=== PATIENT | female | born 1995 | race Caucasian/White ===

== ENCOUNTER 2016-11-05 21:17 | Emergency (ER) | payer SELFPAY ==
[2016-11-05] MEDS ORDERED: Sodium Chloride 0.9% 1000 ML 1,000 ML IV STA (22:03)
[2016-11-05] MEDS ORDERED: Zofran 4 MG/2 ML VIAL IV ONE (22:03)
--- NOTE | 2016-11-05 22:14 | ERPHSYRPT ---
- History of Present Illness Time Seen by Provider: 11/05/16 21:51 Historian: patient, family (mother) Patient Subjective Stated Complaint: STATES THAT SINCE THIS AFTERNOON, SHE HAS HAD TROUBLE WITH MID ABDOMINAL PAIN AND NAUSEA - STATES THAT SHE FEELS LIKE THERE IS A BAND WRAPPED AROUND HER STOMACH - STATES SHE FEELS LIKE SOMETHING HAS BURST INSIDE OF HER - ALSO REPORTS SOME BLOOD IN A LOOSE STOOL TONIGHT Triage Nursing Assessment: AMBULATORY TO TREATMENT AREA - STEADY GAIT - MOVES ALL EXTREMITIES WITH EQUAL STRENGTH. ALERT/ORIENTED - PLEASANT AFFECT. SKIN PWD - NO RASH/INJURY. RESPS SPONTANEOUS - EASY - NON-LABORED Physician History: CC: abd pain Hx: 21 y/o healthy patient had some lower abd discomfort, nausea, 2 loose stools today. She then had some blood in stool that was bright red. Came to ER due to blood. No hx of this in the past. The pain is now mostly gone. Dry heaves without vomiting. She reports long hx of some abdominal discomfort and bowel issues. She has some seasonal allergies. Never considered for gluten of GI allergies. Timing/Duration: today Allergies/Adverse Reactions: sulfamethoxazole [From Bactrim] Adverse Reaction (Severe, Verified 11/05/16 21: 30) Diarrhea trimethoprim [From Bactrim] Adverse Reaction (Severe, Verified 11/05/16 21:30) Diarrhea Hx Tetanus, Diphtheria Vaccination/Date Given: Yes Hx Influenza Vaccination/Date Given: Yes Hx Pneumococcal Vaccination/Date Given: No Immunizations Up to Date: Yes - Review of Systems Constitutional: Malaise, No Fever, No Chills Eyes: No Symptoms Ears, Nose, & Throat: No Symptoms Respiratory: No Cough Cardiac: No Chest Pain Abdominal/Gastrointestinal: Abdominal Pain, Nausea, Diarrhea, No Vomiting Genitourinary Symptoms: No Dysuria Skin: No Rash Neurological: No Focal Weakness, No Headache, No Parasthesia All Other Systems: Reviewed and Negative - Past Medical History Pertinent Past Medical History: Yes Respiratory History: Asthma - Past Surgical History Past Surgical History: Yes - Social History Smoking Status: Never smoker Exposure to second hand smoke: No Drug Use: none Patient Lives Alone: No - Female History Hx Last Menstrual Period: 10/20/2016 - Nursing Vital Signs Nursing Vital Signs: Initial Vital Signs Temperature 98.2 F Temperature Source Oral Pulse Rate 82 Respiratory Rate 16 Blood Pressure 127/65 Pain Intensity 0 - Physical Exam General Appearance: alert Eye Exam: PERRL/EOMI Ears, Nose, Throat Exam: normal ENT inspection, moist mucous membranes Neck Exam: normal inspection, non-tender, supple Respiratory Exam: normal breath sounds, lungs clear Cardiovascular Exam: regular rate/rhythm, No murmur Gastrointestinal/Abdomen Exam: soft, No tenderness, No distention, No mass, No guarding Back Exam: normal range of motion Extremity Exam: No pedal edema Neurologic Exam: alert, oriented x 3, cooperative, sensation nml, No motor deficits Skin Exam: warm, dry, No rash SpO2 Interpretation: normal SpO2: 100 Oxygen Delivery: Room Air - Course Nursing assessment & vital signs reviewed: Yes - Radiology Exams AAS X-ray Interpretation: Reviewed by me, Negative Ordered Tests: Active Orders 24 hr Category Date Time Status Clean Catch Urine Specimen STAT Care 11/05/16 22:03 Active IV Insertion STAT Care 11/05/16 22:03 Active OBSTR/ACUTE ABDOMEN SERIES Stat Exams 11/05/16 22:03 Taken CBC W DIFF Stat Lab 11/05/16 22:20 Completed CMP Stat Lab 11/05/16 22:20 Completed HCG QUALITATIVE,SERUM Stat Lab 11/05/16 22:20 Completed Occult Blood,Stool Other Stat Lab 11/05/16 22:25 Completed UA Stat Lab 11/05/16 22:15 Completed Medication Summary Discontinued Medications Generic Name Dose Route Start Last Admin Trade Name Freq PRN Reason Stop Dose Admin Sodium Chloride 1,000 mls @ 999 mls/hr 11/05/16 22:03 11/05/16 22:22 Sodium Chloride 0.9% 1000 Ml IV 11/05/16 23:03 999 mls/hr .Q1H1M STA Administration Sodium Chloride Confirm 11/05/16 22:20 Sodium Chloride 0.9% 1000 Ml Administered 11/05/16 22:21 Dose 1,000 mls @ ud .ROUTE .STK-MED ONE Ondansetron HCl 4 mg 11/05/16 22:03 11/05/16 22:22 Zofran 4 Mg/2 Ml Vial IV 11/05/16 22:04 4 mg STAT ONE Administration Ondansetron HCl Confirm 11/05/16 22:20 Zofran 4 Mg/2 Ml Vial Administered 11/05/16 22:21 Dose 4 mg .ROUTE .STK-MED ONE Lab/Rad Data: Laboratory Result Diagrams 11/05/16 22:20 11/05/16 22:20 Laboratory Results 11/05/16 11/05/16 11/05/16 Range/Units 22:25 22:20 22:20 WBC (4.0-10.5) K/mm3 RBC (4.1-5.4) M/mm3 Hgb (12.0-16.0) gm/dl Hct (35-47) % MCV (78-100) fl MCH (26-32) pg MCHC (32-36) g/dl RDW (11.5-14.0) % Plt Count (150-450) K/mm3 MPV (6-9.5) fl Gran % (36.0-66.0) % Lymphocytes % (24.0-44.0) % Monocytes % (0.0-12.0) % Eosinophils % (0.00-5.0) % Basophils % (0.0-0.4) % Basophils # (0-0.4) Sodium 140 (136-145) mEq/L Potassium 3.6 (3.5-5.1) mEq/L Chloride 104 (98-107) mEq/L Carbon Dioxide 28.1 (21-32) mEq/L Anion Gap 11.9 (5-15) MEQ/L BUN 7 L (9-20) mg/dL Creatinine 0.72 (0.55-1.30) mg/dl Estimated GFR > 60 ML/MIN Glucose 93 (70-110) MG/DL Calcium 8.8 (8.5-10.1) mg/dL Total Bilirubin 0.2 (0.2-1.0) mg/dL AST 12 L (15-37) U/L ALT 18 (12-78) U/L Alkaline Phosphatase 86 (46-116) U/L Serum Total Protein 8.0 (6.4-8.2) gm/dL Albumin 3.9 (3.4-5.0) g/dL Serum , Qual NEGATIVE (Negative) Ur Collection Type Urine Color (YELLOW) Urine Appearance (CLEAR) Urine pH (5-6) Ur Specific Maple (1.005-1.025) Urine Protein (Negative) Urine Glucose (UA) (NEGATIVE) mg/dL Urine Ketones (NEGATIVE) Urine Nitrite (NEGATIVE) Urine Bilirubin (NEGATIVE) Urine Urobilinogen (0-1) mg/dL Urine WBC (Auto) (NEGATIVE) Urine RBC (Auto) (0-5) Dmitriy/ul Stool Occult Blood NEGATIVE (Negative) Specimen Received 11/05/16 11/05/16 Range/Units 22:20 22:15 WBC 9.5 (4.0-10.5) K/mm3 RBC 4.74 (4.1-5.4) M/mm3 Hgb 13.0 (12.0-16.0) gm/dl Hct 41.1 (35-47) % MCV 86.7 (78-100) fl MCH 27.4 (26-32) pg MCHC 31.6 L (32-36) g/dl RDW 14.0 (11.5-14.0) % Plt Count 246 (150-450) K/mm3 MPV 10.9 H (6-9.5) fl Gran % 56.2 (36.0-66.0) % Lymphocytes % 31.2 (24.0-44.0) % Monocytes % 8.7 (0.0-12.0) % Eosinophils % 3.7 (0.00-5.0) % Basophils % 0.2 (0.0-0.4) % Basophils # 0.02 (0-0.4) Sodium (136-145) mEq/L Potassium (3.5-5.1) mEq/L Chloride (98-107) mEq/L Carbon Dioxide (21-32) mEq/L Anion Gap (5-15) MEQ/L BUN (9-20) mg/dL Creatinine (0.55-1.30) mg/dl Estimated GFR ML/MIN Glucose (70-110) MG/DL Calcium (8.5-10.1) mg/dL Total Bilirubin (0.2-1.0) mg/dL AST (15-37) U/L ALT (12-78) U/L Alkaline Phosphatase (46-116) U/L Serum Total Protein (6.4-8.2) gm/dL Albumin (3.4-5.0) g/dL Serum , Qual (Negative) Ur Collection Type CLEAN CATCH Urine Color LT.YELLOW (YELLOW) Urine Appearance CLEAR (CLEAR) Urine pH 6.0 (5-6) Ur Specific Maple <=1.005 (1.005-1.025) Urine Protein NEGATIVE (Negative) Urine Glucose (UA) NEGATIVE (NEGATIVE) mg/dL Urine Ketones NEGATIVE (NEGATIVE) Urine Nitrite NEGATIVE (NEGATIVE) Urine Bilirubin NEGATIVE (NEGATIVE) Urine Urobilinogen 0.2 (0-1) mg/dL Urine WBC (Auto) NEGATIVE (NEGATIVE) Urine RBC (Auto) NEGATIVE (0-5) Dmitriy/ul Stool Occult Blood (Negative) Specimen Received 11/05/16:2215 - Progress Progress Note: 11/05/16 22:[address] scan. She states pain mostly gone so wants xray. 11/05/16 23:15 The tests are wnl. She has no abd tenderness at present. Will release with follow up with Dr Gonzalez. Counseled pt/family regarding: lab results, diagnosis, need for follow-up, rad results - Departure Time of Disposition: 23:22 Departure Disposition: Home Clinical Impression: Abdominal pain, Hematochezia Condition: Stable Critical Care Time: No Referrals: MARÍA ELENA GONZALEZ [Primary Care Provider] - Instructions: Abdominal Pain-Adult, Gastrointestinal Bleeding Additional Instructions: [place] diet. Use zofran as directed for nausea. Follow up with Dr Gonzalez next week. Return for fever, passing blood, worse or changed abdominal pain or concerns. Prescriptions: Ondansetron [Zofran Odt] 4 mg PO Q6HPRN PRN #10 tab.rapdis PRN Reason: Nausea/Vomiting
[2016-11-05] MEDS ORDERED: Sodium Chloride 0.9% 1000 ML 1,000 ML ONE (22:20)
[2016-11-05] MEDS ORDERED: Zofran 4 MG/2 ML VIAL ONE (22:20)
[2016-11-05 22:25] LABS: BASOPHIL % 0.2 % (0.0-0.4); Eosinophil % 3.7 % (0.00-5.0); Granulocytes % 56.2 % (36.0-66.0); Lymphocytes % 31.2 % (24.0-44.0); Mean Cell Volume 86.7 fl (78-100); Mean Corpuscular Hemoglobin 27.4 pg (26-32); Mean Platelet Volume 10.9 fl (6-9.5); Monocytes % 8.7 % (0.0-12.0); Platelet Count 246 K/mm3 (150-450); Red Blood Count 4.74 M/mm3 (4.1-5.4); White Blood Count 9.5 K/mm3 (4.0-10.5)
[2016-11-05 22:27] LABS: COMPLETE URINE MICROSCOPIC? NO; Collection Type CLEAN CATCH
[2016-11-05 22:48] LABS: ALBUMIN 3.9 g/dL (3.4-5.0); ALKALINE PHOSPHATASE 86 U/L (46-116); ANION GAP 11.9 MEQ/L (5-15); BILIRUBIN,TOTAL 0.2 mg/dL (0.2-1.0); BLOOD UREA NITROGEN 7 mg/dL (9-20); CHLORIDE 104 mEq/L (98-107); Carbon Dioxide 28.1 mEq/L (21-32); Glucose 93 MG/DL (70-110); Potassium 3.6 mEq/L (3.5-5.1); SGOT/AST 12 U/L (15-37); SGPT/ALT 18 U/L (12-78); SODIUM 140 mEq/L (136-145)
[2016-11-05 23:07] VITALS: BP 127/65; PULSE 82
[2016-11-05 23:19] VITALS: O2SAT 100
[2016-11-05] MEDS ORDERED: ZOFRAN ODT 4 MG PO ONE (23:24)
[2016-11-05] MEDS ORDERED: ZOFRAN ODT 4 MG ONE (23:26)
--- NOTE | 2016-11-06 09:42 | XRAY ---
Indication: Abdomen pain. Rectal bleeding. Comparison: None 2 views of the abdomen nonacute and nonobstructed. No free air. Solid organs and osseous structures are unremarkable. Single frontal chest demonstrates normal heart, lungs, and bony thorax. Impression: Negative abdomen. Normal 1 view chest.
== END 2016-11-05 23:37 | disposition home or self-care (01) ==
LOC: ED 21:17
DX: R10.30 Lower abdominal pain, unspecified (principal); K92.1 Melena; R11.0 Nausea; R19.7 Diarrhea, unspecified
CPT/HCPCS: 36000; 36415; 74022; 80053; 81002; 82272; 84703; 85025; 96360; 96374; 99283; J2405; Q0162